=== PATIENT | female | born 1980 | race African-American/Black ===

== ENCOUNTER 2017-07-06 15:57 | Emergency (ER) | payer OTHER ==
[~2017-07-06] VITALS: Ht 160 cm; Wt 66.2 kg
[~2017-07-06 15:57] MED LIST: DEPO-PROVE150 MG/1 M IM; GUAIFENESIN-CO118 ML PO; IBUPROFEN 600600 M1 PO; MEDROLDOSEPACK PO; NORCO 5-325 TA1 EACH PO
[2017-07-06 17:31] LABS: URINE BILIRUBIN NEGATIVE (Negative); URINE BLOOD 2+ (Negative); URINE COLOR YELLOW; URINE GLUCOSE-RANDOM* NEGATIVE (Negative); URINE KETONES NEGATIVE (Negative); URINE NITRITE NEGATIVE (Negative); URINE PROTEIN (DIPSTICK) 2+ (Negative); URINE UROBILINOGEN 0.2 E.U./dl (0.2-1.0)
[2017-07-06 17:39] LABS: SQUAMOUS >10 Many /LPF (0-3)
[2017-07-06 17:40] LABS: CASTS None Seen /LPF (None Seen); CRYSTALS None Seen /LPF (None Seen); URINE RBC None Seen /HPF (0-2); URINE WBC >25 Many /HPF (0-5)
[2017-07-06 17:41] LABS: BACTERIA >30 Many /HPF (None Seen)
[2017-07-06] MEDS ORDERED: FLAGYL500 MG PO (17:43)
[2017-07-06 17:59] VITALS: BP 121/70
== END 2017-07-06 18:00 | disposition home or self-care (01) ==
LOC: ER 15:57
PROVIDERS: Physician Assistant
DX: A59.09 Other urogenital trichomoniasis (principal); A64 Unspecified sexually transmitted disease; N80.9 Endometriosis, unspecified; F10.99 Alcohol use, unspecified with unspecified alcohol-induced disorder

== ENCOUNTER 2021-06-04 17:29 | Emergency (ER) | payer OTHER ==
[~2021-06-04] VITALS: Ht 160 cm; Wt 65.8 kg
[~2021-06-04 17:29] MED LIST changes: +FLAGYL500 MG PO
[2021-06-04] MEDS ORDERED: IBU600 MG PO (19:10)
[2021-06-04 19:19] VITALS: BP 114/77
== END 2021-06-04 19:27 | disposition home or self-care (01) ==
LOC: ER 17:29
DX: S33.5XXA Sprain of ligaments of lumbar spine, initial encounter (principal); S23.3XXA Sprain of ligaments of thoracic spine, initial encounter; Z98.51 Tubal ligation status; V89.2XXA Person injured in unspecified motor-vehicle accident, traffic, initial encounter; Y93.89 Activity, other specified; Y92.89 Other specified places as the place of occurrence of the external cause; Y99.8 Other external cause status